=== PATIENT | male | born 1965 | race Caucasian/White ===

== ENCOUNTER → 2017-10-07 | Outpatient (CLI) | payer BC ==
--- NOTE | 2017-10-07 12:12 | KCIC ---
MR of the left humerus without contrast HISTORY: Lifting injury. Pain to the mid to distal biceps. Injury 3 months ago. TECHNIQUE: Routine multiplanar sequences FINDINGS: Fatty mass is incidentally noted in the teres major muscle compatible with a small lipoma. Tear of the distal biceps tendon. There is limited visualization at the expected attachment site, at the radial tuberosity, as the scan was centered at the humerus, but this is compatible with a high-grade tear or rupture. The tendon fibers are retracted at least 7 cm proximally in the arm. There is mild surrounding fluid and hemorrhage. No evidence of bone marrow edema, acute fracture or bone destruction. No periosteal reaction. IMPRESSION: Findings are compatible with a high-grade tear or rupture of the distal biceps tendon, with approximately 7 cm proximal retraction. Electronically signed by: Tay Minaya MD (10/07/2017 12:08 PM) [id number]
== END | disposition home or self-care (01) ==
LOC: KCIC MRI 10:02
PROVIDERS: ATTEND Family Medicine
DX: S45.212A Laceration of axillary or brachial vein, left side, initial encounter (principal)
CPT/HCPCS: 73218